=== PATIENT | female | born 1970 | race American Indian/Alaskan Native ===

== ENCOUNTER 2019-06-27 21:01 | Emergency (ER) | payer SELFPAY ==
[2019-06-27] MEDS ORDERED: ASPIRIN 325 MG TAB PO ONE (21:11)
--- NOTE | 2019-06-27 21:36 | Emergency Department Report ---
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 The pain happens when she is swallowing, laughing, coughing but does not appear to occur while at rest, in between these actions. She denies a ny shortness of breath, fever, nausea, vomiting or diaphoresis. She has not taken anything for symptoms prior to presentation. Patient says that she had a full cardiac work-up, including a negative stress test, about 1 year ago at [facility]. 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 Denies any tobacco or illicit drug use. No recent travel or sick contacts at home. Patient says that she has a past medical history of a "mild" CVA. - Related Data Previous Rx's Medication Instructions Recorded Last Taken Type Cyclobenzaprine [Flexeril] 10 mg PO TID PRN #10 tablet 12/17/18 Unknown Rx predniSONE [Deltasone] 20 mg PO DAILY #5 tablet 12/17/18 Unknown Rx Ibuprofen [Motrin 600 MG tab] 600 mg PO Q8H PRN #20 tablet 06/27/19 Unknown Rx Allergies Allergy/AdvReac Type Severity Reaction Status Date / Time No Known Allergies Allergy Verified 06/27/19 21:08 Heart Score - HEART Score History: Slightly suspicious EKG: Normal Age: 45-65 Risk factors: 1-2 risk factors Troponin: < normal limit HEART Score: 2 - Critical Actions Critical Actions: 0-3 pts:0.9-1.7%risk of adverse cardiac event.Candidate for discharge ED Review of Systems ROS: Stated complaint: CHEST PAIN Other details as noted in HPI Comment: All other systems reviewed and negative Constitutional: denies: chills, fever Eyes: denies: eye pain, vision change ENT: denies: ear pain, throat pain Respiratory: denies: cough, shortness of breath Cardiovascular: chest pain. denies: palpitations Gastrointestinal: denies: abdominal pain, vomiting Genitourinary: denies: dysuria, discharge Musculoskeletal: denies: back pain, arthralgia Skin: denies: rash, lesions Neurological: denies: headache, weakness ED Past Medical Hx - Past Medical History Hx CVA: Yes ("mild") - Surgical History Additional Surgical History: x1 - Social History Smoking Status: Never Smoker Substance Use Type: None - Medications Home Medications: Home Medications Medication Instructions Recorded Confirmed Last Taken Type Cyclobenzaprine [Flexeril] 10 mg PO TID PRN #10 tablet 12/17/18 Unknown Rx predniSONE [Deltasone] 20 mg PO DAILY #5 tablet 12/17/18 Unknown Rx Ibuprofen [Motrin 600 MG tab] 600 mg PO Q8H PRN #20 tablet 06/27/19 Unknown Rx ED Physical Exam - General Limitations: No Limitations - Other Other exam information: GENERAL: The patient is well-developed well-nourished. HENT: Normocephalic. Atraumatic. Patient has moist mucous membranes. EYES: Extraocular motions are intact. NECK: Supple. Trachea is midline. CHEST/LUNGS: Clear to auscultation. There is no respiratory distress noted. There is some reproducible tenderness to palpation to the midsternal chest wall. No crepitus or deformity. HEART/CARDIOVASCULAR: Regular. There is no tachycardia. There is no murmur. ABDOMEN: Abdomen is soft, nontender. Patient has normal bowel sounds. SKIN: Skin is warm and dry. NEURO: The patient is awake, alert, and oriented. The patient is cooperative. The patient has no focal neurologic deficits. Normal speech. MUSCULOSKELETAL: There is no tenderness or deformity. There is no evidence of acute injury. ED Course Vital Signs 06/27/19 06/27/19 06/27/19 21:09 21:54 22:00 Temperature 98.7 F Pulse Rate 76 74 70 Respiratory 18 23 18 Rate Blood Pressure 142/77 112/69 O2 Sat by Pulse 100 99 Oximetry LALI score - Lali Score Age > 65: (0) No Aspirin use within the Past 7 Days: (0) No 3 or more CAD Risk Factors: (0) No 2 or more Angina events in past 24 hrs: (1) Yes Known CAD with more than 50% Stenosis: (0) No Elevated Cardiac Markers: (0) No ST Deviation Greater than 0.5mm: (0) No LALI Score: 1 ED Medical Decision Making - Lab Data Result diagrams: 06/27/19 21:26 06/27/19 21:26 - EKG Data -: EKG Interpreted by Me EKG shows normal: sinus rhythm, axis, intervals, QRS complexes, ST-T waves Rate: normal - EKG Data When compared to previous EKG there are: previous EKG unavailable Interpretation: normal EKG - Radiology Data Radiology results: image reviewed interpreted by me: Chest x-ray does not show any acute process. There are no pleural effusions, obvious pneumonia and there is no pneumothorax. - Medical Decision Making This patient presents to the emergency department with complaint of a 2-week his tory of intermittent midsternal chest pain. The pain appears to occur when she is swallowing, with certain movements and on physical examination when there is some palpation of the chest wall. No crepitus or deformity. EKG is normal without ST elevation [place], ischemia or dysrhythmia. Chest x-ray does not show any pneumothorax, pleural effusions, pneumonia, or any other acute process. Patient's labs have been unremarkable thus far including CBC, metabolic panel and troponin. The patient is low on the heart and LALI score. She is low on the Wells score criteria and negative on pulmonary embolism rule out criteria. Patient was given some Toradol for suspicion of costochondritis. She was also given a GI cocktail based on the fact that she gets some discomfort with swallowing, which could also be esophageal spasm. It appears lower suspicion that this is cardiac in origin. However, our [facility] has a protocol for low heart score, low risk, chest pain patients and this patient's information has been sent to [facility] cardiology. Someone from their office should be contacting her in the next 1 to 2 days for close outpatient follow-up. In the meantime, the patient has been instructed to return to the emergency department with any worsening of her symptoms or any acute distress. Critical Care Time: No Critical care attestation.: If time is entered above; I have spent that time in minutes in the direct care of this critically ill patient, excluding procedure time. ED Disposition Clinical Impression: Atypical chest pain Disposition: DC-01 TO HOME OR SELFCARE Is pt being admited?: No Condition: Stable Instructions: Chest Pain (ED), Costochondritis (ED) Additional Instructions: Your information has been sent over to [facility], and someone from their office should be contacting you shortly for close outpatient follow-up. I have also given you some referrals for local primary care clinics. Return to the emergency department with any worsening of your symptoms or any acute distress. Prescriptions: Ibuprofen [Motrin 600 MG tab] 600 mg PO Q8H PRN #20 tablet PRN Reason: Pain Referrals: PRIMARY CARE, [Primary Care Provider] - 2-3 Days ANA PAULA RAYA MD [Staff Physician] - 2-3 Days [facility] [Provider Group] - 2-3 Days [facility] [Outside] - 2-3 Days Time of Disposition: 22:46
[2019-06-27 21:37] LABS: Basophils % (Auto) 0.4 % (0.0-1.8); Eosinophils # (Auto) 0.3 K/mm3 (0.0-0.4); Hematocrit 39.7 % (30.3-42.9); Hemoglobin 13.5 gm/dl (10.1-14.3); Lymphocytes # (Auto) 3.2 K/mm3 (1.2-5.4); Lymphocytes % (Auto) 36.9 % (13.4-35.0); Mean Corpuscular HGB Conc 34 % (30-34); Mean Corpuscular Volume 89 fl (79-97); Monocytes # (Auto) 0.6 K/mm3 (0.0-0.8); Monocytes % (Auto) 7.4 % (0.0-7.3); Platelet Count 220 K/mm3 (140-440); Red Blood Count 4.45 M/mm3 (3.65-5.03); Red Cell Distribution Width 13.9 % (13.2-15.2)
--- NOTE | 2019-06-27 21:43 | XRay Report ---
CHEST 1 VIEW INDICATION / CLINICAL INFORMATION: Chest Pain. COMPARISON: None available. FINDINGS: SUPPORT DEVICES: None. HEART / MEDIASTINUM: No significant abnormality. LUNGS / PLEURA: Mild bilateral interstitial prominence. No focal pulmonary consolidation. No pleural effusion. No pneumothorax. ADDITIONAL FINDINGS: No significant additional findings. IMPRESSION: 1. Mild nonspecific interstitial prominence, but no focal pulmonary consolidation identified. Signer Name: Aiyana Rangel MD Signed: 06/27/2019 9:39 PM Workstation Name: [id number]
[2019-06-27 21:47] LABS: INR 1.1 (0.87-1.13)
[2019-06-27 21:58] LABS: BUN/Creatinine Ratio 12; Blood Urea Nitrogen 11 mg/dL (7-17); Calcium 9.2 mg/dL (8.4-10.2); Hemolysis Index 14
[2019-06-27] MEDS ORDERED: ALUM-MAG HYDROXIDE-SIMETHICONE 200-200-20MG/5ML ORAL LIQD 30 ML PO ONE (22:04)
[2019-06-27] MEDS ORDERED: KETOROLAC 30 MG/1 ML INJ IM ONE (22:04)
[2019-06-27] MEDS ORDERED: LIDOCAINE VISCOUS 2% 15 ML ORAL LIQD PO ONE (22:04)
[2019-06-27 23:20] VITALS: BP 129/71
== END 2019-06-27 23:21 | disposition home or self-care (01) ==
LOC: ED 21:01
DX: R07.89 Other chest pain (principal); Z98.890 Other specified postprocedural states
CPT/HCPCS: 36415; 71045; 80048; 84484; 85025; 85610; 93005; 93010; 96372; 99284; J1885